=== PATIENT | female | born 1990 | race Two or more races ===

== ENCOUNTER → 2016-09-16 | Outpatient (REF) | payer BC ==
[2016-09-16 16:17] LABS: FREE T4 1.08 NG/DL (0.76-1.46)
== END ==
LOC: M LABDRAW1 15:21
PROVIDERS: ATTEND Nurse Practitioner Women's Health
DX: N92.6 Irregular menstruation, unspecified (principal); Z68.42 Body mass index [BMI] 45.0-49.9, adult

== ENCOUNTER → 2016-12-30 | Outpatient (REF) | payer BC ==
[2016-12-30 16:18] LABS: ALBUMIN 3.8 GM/DL (3.2-5.2); ALBUMIN/GLOBULIN RATIO 1.31 (1.00-1.93); ALKALINE PHOSPHATASE 52 U/L (45-117); ALT/SGPT 72 U/L (12-78); ANION GAP 9 MEQ/L (8-16); AST/SGOT 29 U/L (15-37); BASO % 0.5 % (0.0-1.0); BILIRUBIN,TOTAL 1.1 MG/DL (0.2-1.0); BLOOD UREA NITROGEN 6 MG/DL (7-18); CALCIUM LEVEL 9.3 MG/DL (8.5-10.1); CARBON DIOXIDE LEVEL 28 MEQ/L (21-32); CHLORIDE LEVEL 104 MEQ/L (98-107); EOS # 0.2 K/mm3 (0.0-0.50); EOS % 2.2 % (0.0-3.0); FERRITIN 46 NG/ML (8-252); GLOMERULAR FILTRATION RATE > 60.0 (>60); GLUCOSE, FASTING 70 MG/DL (70-105); LARGE UNSTAINED CELL # 0.1 K/mm3 (0.0-0.4); LARGE UNSTAINED CELL % 1.7 % (0.0-4.0); LYMPH # 2.6 K/mm3 (1.5-6.5); LYMPH % 34.7 % (24.0-44.0); MAGNESIUM LEVEL 2.2 MG/DL (1.8-2.4); MEAN CORPUSCULAR HEMOGLOBIN 29.3 pg (27.0-33.0); MEAN CORPUSCULAR HGB CONC 32.1 g/dl (32.0-36.5); MEAN CORPUSCULAR VOLUME 91.3 fl (80.0-96.0); MONO # 0.6 K/mm3 (0.0-0.8); NEUTROPHILS # 3.8 K/mm3 (1.8-7.7); NEUTROPHILS % 52.9 % (36.0-66.0); PERCENT SATURATION 21.4 % (13.2-37.4); PLATELET COUNT, AUTOMATED 248 k/mm3 (150-450); RED CELL DISTRIBUTION WIDTH 13.9 % (11.5-14.5); SODIUM LEVEL 141 MEQ/L (136-145); TOTAL IRON BINDING CAPACITY 280 UG/DL (250-450); TOTAL PROTEIN 6.7 GM/DL (6.4-8.2); WHITE BLOOD COUNT 7.1 K/mm3 (4.0-10.0)
[2016-12-30 16:22] LABS: VITAMIN B12 LEVEL 1351 PG/ML (247-911)
[2017-01-03 11:55] LABS: PRETREATED FOLATE FOR RBCFOL 8.5 NG/ML
== END ==
LOC: M LABDRAW1 12:13
PROVIDERS: ATTEND Surgery
DX: K91.2 Postsurgical malabsorption, not elsewhere classified (principal); Z98.84 Bariatric surgery status

== ENCOUNTER → 2017-03-19 | Outpatient (REF) | payer BC ==
[2017-03-19 18:41] LABS: FREE T4 1.04 NG/DL (0.76-1.46)
== END ==
LOC: M LABDRAW1 15:11
PROVIDERS: ATTEND Nurse Practitioner Women's Health
DX: N92.0 Excessive and frequent menstruation with regular cycle (principal)

== ENCOUNTER → 2017-05-12 | Outpatient (CLI) | payer BC ==
[2017-05-12 16:02] LABS: BASO % 0.4 % (0.0-1.0); EOS # 0.2 10^3/uL (0.0-0.50); IMMATURE GRANULOCYTE % 0.3 % (0-0); LYMPH # 2.8 10^3/uL (1.5-6.5); LYMPH % 38.1 % (24.0-44.0); MEAN CORPUSCULAR HEMOGLOBIN 28.2 pg (27.0-33.0); MEAN CORPUSCULAR HGB CONC 31.6 g/dl (32.0-36.5); MEAN CORPUSCULAR VOLUME 89.3 fl (80.0-96.0); MONO # 0.5 10^3/uL (0.0-0.8); MONO % 6.6 % (0.0-5.0); NEUTROPHILS # 3.9 10^3/uL (1.8-7.7); NEUTROPHILS % 52.6 % (36.0-66.0); PLATELET COUNT, AUTOMATED 264 10^3/uL (150-450); RED CELL DISTRIBUTION WIDTH 13.2 % (11.5-14.5); WHITE BLOOD COUNT 7.4 10^3/uL (4.0-10.0)
[2017-05-12 16:28] LABS: ALBUMIN 3.5 GM/DL (3.2-5.2); ALBUMIN/GLOBULIN RATIO 1.35 (1.00-1.93); ALKALINE PHOSPHATASE 44 U/L (45-117); ALT/SGPT 22 U/L (12-78); ANION GAP 5 MEQ/L (8-16); AST/SGOT 12 U/L (7-37); BILIRUBIN,TOTAL 0.8 MG/DL (0.2-1.0); BLOOD UREA NITROGEN 11 MG/DL (7-18); CALCIUM LEVEL 9.1 MG/DL (8.5-10.1); CARBON DIOXIDE LEVEL 29 MEQ/L (21-32); CHLORIDE LEVEL 110 MEQ/L (98-107); CREATININE FOR GFR 0.71 MG/DL (0.55-1.02); FERRITIN 23 NG/ML (8-252); GLOMERULAR FILTRATION RATE > 60.0 (>60); GLUCOSE, FASTING 79 MG/DL (70-105); PERCENT SATURATION 25.6 % (13.2-45.0); PHOSPHORUS LEVEL 3.6 MG/DL (2.5-4.9); POTASSIUM SERUM 4.3 MEQ/L (3.5-5.1); SODIUM LEVEL 144 MEQ/L (136-145); TOTAL IRON BINDING CAPACITY 273 UG/DL (250-450); TOTAL PROTEIN 6.1 GM/DL (6.4-8.2)
[2017-05-13 11:03] LABS: PRETREATED FOLATE FOR RBCFOL 8.9 NG/ML
[2017-05-13 11:13] LABS: VITAMIN B12 LEVEL 518 PG/ML (247-911)
== END ==
LOC: M LABDRAW1 15:04
PROVIDERS: ATTEND Surgery
DX: K91.2 Postsurgical malabsorption, not elsewhere classified (principal); Z98.84 Bariatric surgery status; E55.9 Vitamin D deficiency, unspecified

== ENCOUNTER 2017-09-06 15:14 | Emergency (ER) | payer SELFPAY, BC, MEDICAID ==
[2017-09-06] MEDS: NS 1,000 ML IV (17:55)
[2017-09-06] MEDS: KETOROLAC 30 MG/ML VIAL (J1885) IV (17:55)
[2017-09-06 17:59] LABS: AMORPHOUS SEDIMENT SMALL (NEGATIVE); APPEARANCE, URINE CLOUDY (CLEAR); BACTERIA, URINE AUTO 1+ (NEGATIVE); BILIRUBIN, URINE AUTO NEGATIVE (NEGATIVE); BLOOD, URINE BLOOD 2+ (NEGATIVE); COLOR, URINE YELLOW (YELLOW); GLUCOSE, URINE (UA) AUTO NEGATIVE (NEGATIVE); KETONE, URINE AUTO 2+ mg/dL (NEGATIVE); LEUKOCYTE ESTERASE, URINE AUTO TRACE (NEGATIVE); MUCUS, URINE SMALL (NEGATIVE); NITRITE, URINE AUTO NEGATIVE (NEGATIVE); PROTEIN, URINE AUTO 2+ mg/dL (NEGATIVE); RBC, URINE AUTO TNTC /HPF (0-3); SPECIFIC GRAVITY URINE AUTO 1.028 (1.002-1.035); SQUAMOUS EPITHELIAL CELL UR AU 5 /HPF (0-6); WBC, URINE AUTO 23 /HPF (0-3)
[2017-09-06 18:00] LABS: BASO % 0.2 % (0.0-1.0); EOS % 0.1 % (0.0-3.0); HEMATOCRIT 40.3 % (36.0-47.0); IMMATURE GRANULOCYTE % 0.4 % (0-3.0); LYMPH # 1.2 10^3/uL (1.5-6.5); LYMPH % 8.9 % (24.0-44.0); MEAN CORPUSCULAR HEMOGLOBIN 28.7 pg (27.0-33.0); MEAN CORPUSCULAR HGB CONC 32.3 g/dl (32.0-36.5); MONO # 0.3 10^3/uL (0.0-0.8); MONO % 2.3 % (0.0-5.0); NEUTROPHILS # 12.1 10^3/uL (1.8-7.7); NEUTROPHILS % 88.1 % (36.0-66.0); PLATELET COUNT, AUTOMATED 302 10^3/uL (150-450); RED BLOOD COUNT 4.53 10^6/uL (4.00-5.40); RED CELL DISTRIBUTION WIDTH 13.4 % (11.5-14.5); WHITE BLOOD COUNT 13.8 10^3/uL (4.0-10.0)
[2017-09-06 18:24] LABS: ALBUMIN 4.3 GM/DL (3.2-5.2); ALBUMIN/GLOBULIN RATIO 1.23 (1.00-1.93); ALKALINE PHOSPHATASE 56 U/L (45-117); ALT/SGPT 27 U/L (12-78); ANION GAP 7 MEQ/L (8-16); AST/SGOT 17 U/L (7-37); BILIRUBIN,TOTAL 0.8 MG/DL (0.2-1.0); BLOOD UREA NITROGEN 11 MG/DL (7-18); CALCIUM LEVEL 9.2 MG/DL (8.5-10.1); CARBON DIOXIDE LEVEL 26 MEQ/L (21-32); CHLORIDE LEVEL 109 MEQ/L (98-107); CREATININE FOR GFR 0.95 MG/DL (0.55-1.30); GLOMERULAR FILTRATION RATE > 60.0 (>60); GLUCOSE, FASTING 92 MG/DL (70-100); LIPASE 108 U/L (73-393); POTASSIUM SERUM 4.4 MEQ/L (3.5-5.1); SODIUM LEVEL 142 MEQ/L (136-145); TOTAL PROTEIN 7.8 GM/DL (6.4-8.2)
[2017-09-06] MEDS: KETOROLAC TROMETHAMINE 10 MG TAB PO (20:30)
[2017-09-06] MEDS: TAMSULOSIN 0.4 MG CAP PO (20:39)
== END 2017-09-06 21:00 | disposition home or self-care (01) ==
LOC: M ED 15:14
DX: N83.201 Unspecified ovarian cyst, right side (principal); N20.0 Calculus of kidney; N13.30 Unspecified hydronephrosis; R11.2 Nausea with vomiting, unspecified; Z98.84 Bariatric surgery status; Z79.899 Other long term (current) drug therapy
CPT/HCPCS: J1885

== ENCOUNTER → 2017-10-13 | Outpatient (REF) | payer SELFPAY, MEDICAID ==
[2017-10-13 13:55] LABS: AMORPHOUS SEDIMENT SMALL (NEGATIVE); APPEARANCE, URINE HAZY (CLEAR); BACTERIA, URINE AUTO NEGATIVE (NEGATIVE); BILIRUBIN, URINE AUTO NEGATIVE (NEGATIVE); BLOOD, URINE BLOOD NEGATIVE (NEGATIVE); COLOR, URINE YELLOW (YELLOW); CYSTINE CRYSTALS PRESENT; GLUCOSE, URINE (UA) AUTO NEGATIVE (NEGATIVE); KETONE, URINE AUTO NEGATIVE (NEGATIVE); LEUKOCYTE ESTERASE, URINE AUTO NEGATIVE (NEGATIVE); MUCUS, URINE SMALL (NEGATIVE); NITRITE, URINE AUTO NEGATIVE (NEGATIVE); PROTEIN, URINE AUTO NEGATIVE (NEGATIVE); RBC, URINE AUTO 2 /HPF (0-3); SPECIFIC GRAVITY URINE AUTO 1.023 (1.002-1.035); SQUAMOUS EPITHELIAL CELL UR AU 3 /HPF (0-6); UROBILINOGEN, URINE AUTO 0.2 mg/dL (0.0-2.0); WBC, URINE AUTO 2 /HPF (0-3)
== END ==
LOC: M SMT 13:00
DX: N20.0 Calculus of kidney (principal)
CPT/HCPCS: 81001

== ENCOUNTER → 2018-05-04 | Outpatient (REF) | payer BC | LOC: M LAB REF 17:18 | DX: J02.9 Acute pharyngitis, unspecified (principal) ==

== ENCOUNTER → 2018-08-03 | Outpatient (REF) | payer BC ==
[~2018-08-03] MED LIST: BIOT1CAP2 PO; FLOM0.4C39 PO; KETO10TAB PO; VITA-110 PO
[2018-08-03 13:12] LABS: HEPATITIS B SURFACE ANTIGEN NEGATIVE (NEGATIVE); HIV 1&2 SCREEN CENTAUR NEGATIVE (NEGATIVE)
== END ==
LOC: M LABDRAW1 10:20
PROVIDERS: ATTEND Nurse Practitioner Women's Health
DX: Z11.3 Encounter for screening for infections with a predominantly sexual mode of transmission (principal)

== ENCOUNTER → 2018-11-26 | Outpatient (REF) | payer BC | LOC: M LAB REF 13:23 | PROVIDERS: ATTEND Physician Assistant | DX: J02.9 Acute pharyngitis, unspecified (principal) ==